=== PATIENT | male | born 1950 | race Hispanic/Latino ===

== ENCOUNTER 2020-06-29 06:54 | Outpatient (CLI) | payer OTHER ==
--- NOTE | 2020-06-29 08:52 | Cat Scan Report ---
Exam: CT cervical spine History: LOSS OF USE IN RIGHT HAND/CERVICALGIA; Technique: Contiguous thin cut axial images obtained through the cervical spine. Sagittal and carroll l reconstructions performed by the technologist. All CT scans at this location are performed using CT dose reduction for ALARA by means of automated exposure control. Findings: No priors. There is no evidence of fracture or traumatic subluxation. Vertebral bodies are normal in height and alignment. Intervertebral disc spaces: C2-C3: Facet joint hypertrophic changes on the right side; right neuroforamen narrowed C3-C4: Marked facet joint hypertrophy on the left side; uncovertebral joint hypertrophy bilaterally; right neuroforamen narrowed C4-C5: Facet joint hypertrophic changes on the left; left neuroforamen narrowed C5-C6: Loss of disc height; uncovertebral joint hypertrophy; normal neuroforamina C6-C7: Marked uncovertebral joint hypertrophy on the right; neuroforamina are normal C7-T1: Normal Surrounding soft tissues are grossly normal. Impression: No spondylotic changes at multiple levels; marked facet joint hypertrophic changes multi ple levels; right neuroforamen narrowed at C2-C3 and C3-C4 levels and left neural foramen narrowing a t C4-C5 level; bony canal is not compromised No acute fracture Signer Name: Dorian Crowder MD Signed: 06/29/2020 8:48 AM Workstation Name: [id number]
== END 2020-06-29 06:55 | disposition home or self-care (01) ==
LOC: CT 06:54
PROVIDERS: ATTEND Internal Medicine
DX: M48.02 Spinal stenosis, cervical region (principal)
CPT/HCPCS: 72125